=== PATIENT | female | born 1995 | race Caucasian/White ===

== ENCOUNTER 2019-08-19 17:00 | Emergency (ER) | payer BC ==
[~2019-08-19] VITALS: Ht 167.6 cm; Wt 63.5 kg
[2019-08-19] MEDS ORDERED: IBUP-1017 PO (17:42)
[2019-08-19 17:43] VITALS: BP_SYST 149
--- NOTE | 2019-08-19 17:49 | NUR ---
PATIENT TO WAITING ROOM WITH UX CUP, STABLE, UNCHANGED
--- NOTE | 2019-08-19 18:18 | NUR ---
PATIENT TO ER #4
--- NOTE | 2019-08-19 18:25 | NUR ---
pt came to ER with vaginal pain, redness and pelvic pain. Pt resting in [facility] waiting for
[2019-08-19 19:20] VITALS: BP_SYST 149
--- NOTE | 2019-08-19 19:20 | NUR ---
Patient given written and verbal discharge instructions and verbalizes understanding. ER MD discussed with patient the results and treatment provided. Patient in stable condition. ID arm band removed. Patient educated on pain management and to follow up with PMD. Pain Scale 3/10. Opportunity for questions provided and answered. Medication side effect fact sheet provided.
== END 2019-08-19 19:20 | disposition home or self-care (01) ==
LOC: SED 17:00
DX: N73.2 Unspecified parametritis and pelvic cellulitis (principal)
CPT/HCPCS: 99283